=== PATIENT | female | born 1950 | race African-American/Black ===

== ENCOUNTER 2018-08-28 19:07 | Emergency (ER) | payer OTHER | END 2018-08-28 22:15 | disposition home or self-care (01) | LOC: JER 19:07 ==

== ENCOUNTER 2021-02-16 09:00 | Emergency (ER) | payer OTHER ==
[2021-02-16 09:05] VITALS: BMI 19.0
[2021-02-16 11:11] LABS: BASO % 0.7 % (0-2.0); EOS % 0.6 % (0-4.5); HEMATOCRIT 35.2 % (32.4-45.2); HEMOGLOBIN 12.1 GM/dL (10.7-15.3); LYMPH % 35.5 % (8-40); MCH 28.6 pg (25.7-33.7); MCHC 34.2 g/dl (32.0-36.0); MEAN CELL VOLUME 83.5 fl (80-96); MEAN PLT VOLUME 9.6 fl (7.5-11.1); MONO % 6.6 % (3.8-10.2); NEUT % 56.6 % (42.8-82.8); PLATELET COUNT 197 10^3/uL (134-434); RBC 4.22 M/mm3 (3.60-5.2); RDW 13.8 % (11.6-15.6); WHITE BLOOD COUNT 3.4 K/mm3 (4.0-10.0)
[2021-02-16 11:28] LABS: CHLORIDE 111 mmol/L (98-107); SODIUM 143 mmol/L (136-145)
[2021-02-16 11:31] LABS: ALBUMIN 3.6 g/dl (3.4-5.0); ANION GAP 4 MMOL/L (8-16); BLOOD UREA NITROGEN 14.6 mg/dL (7-18); CO2 28 mmol/L (21-32); GLUCOSE,RANDOM 86 mg/dL (74-106); MAGNESIUM 2.3 mg/dL (1.8-2.4)
[2021-02-16 11:34] LABS: CREATININE 1.1 mg/dL (0.55-1.3); PHOSPHOROUS 2.4 mg/dL (2.5-4.9); SGOT/AST 20 U/L (15-37); SGPT/ALT 19 U/L (13-61)
[2021-02-16 11:35] LABS: BILIRUBIN,TOTAL 0.4 mg/dL (0.2-1); TOT PROT 7.7 g/dl (6.4-8.2)
[2021-02-16 11:37] LABS: ALK PHOS 115 U/L (45-117)
[2021-02-16] MEDS ORDERED: METOCLOPRAMIDE HCL INJECTION 10 MG/2 ML VIAL IVPUSH ONE (13:06)
[2021-02-16] MEDS ORDERED: DEXAMETHASONE SOD PHOSPHATE 10 MG/1 ML VIAL IVPUSH ONE (13:07)
[2021-02-16] MEDS ORDERED: SODIUM CHLORIDE 0.9% 500 ML INFUS.BAG IV ONE (13:07)
[2021-02-16] MEDS ORDERED: KETOROLAC TROMETHAMINE 15 MG/ML VIAL IVPUSH ONE (13:07)
[2021-02-16] MEDS ORDERED: METOCLOPRAMIDE HCL INJECTION 10 MG/2 ML VIAL ONE (13:09)
[2021-02-16] MEDS ORDERED: KETOROLAC TROMETHAMINE 15 MG/ML VIAL ONE (13:10)
[2021-02-16] MEDS ORDERED: DEXAMETHASONE SOD PHOSPHATE 10 MG/1 ML VIAL ONE (13:34)
[2021-02-16 14:52] VITALS: TEMP 98.1
[2021-02-16 15:34] VITALS: BP 128/70; PULSE 68
== END 2021-02-16 15:34 | disposition home or self-care (01) ==
LOC: JER 09:00
PROC: 3E033GC Introduction of Other Therapeutic Substance into Peripheral Vein, Percutaneous Approach (ICD-10-PCS; principal; 2021-02-16)
DX: R53.1 Weakness (principal)
CPT/HCPCS: 36415; 70450-TC; 71045-TC-FY; 80053; 82550; 82553; 83735; 84100; 84484; 85025; 93005; 93010; 96374; 96375; 99285-25; C9803; J1100; U0003; U0005

== ENCOUNTER 2022-05-10 08:50 | Emergency (ER) | payer OTHER ==
[2022-05-10 08:54] VITALS: BP 124/73; PULSE 85; RESP 18; TEMP 99; BMI 19.0
[2022-05-10 10:01] LABS: BASO % 0.7 % (0-2.0); HEMATOCRIT 35.4 % (32.4-45.2); HEMOGLOBIN 11.9 GM/dL (10.7-15.3); LYMPH % 28.5 % (8-40); MCH 27.9 pg (25.7-33.7); MCHC 33.8 g/dl (32.0-36.0); MEAN CELL VOLUME 82.7 fl (80-96); MEAN PLT VOLUME 9.4 fl (7.5-11.1); MONO % 7.3 % (3.8-10.2); NEUT % 62.5 % (42.8-82.8); PLATELET COUNT 224 10^3/uL (134-434); RBC 4.28 M/mm3 (3.60-5.2); RDW 14.3 % (11.6-15.6); WHITE BLOOD COUNT 3.7 K/mm3 (4.0-10.0)
[2022-05-10 10:43] LABS: INR 0.99 (0.83-1.09); PROTHROMBIN TIME (PATIENT) 11.5 SEC (9.7-13.0)
[2022-05-10 10:45] LABS: ACTIVATED PTT 30.3 SECONDS (25.2-36.5)
[2022-05-10 10:56] LABS: ALBUMIN 3.9 g/dl (3.4-5.0); CALCIUM 8.9 mg/dL (8.5-10.1)
[2022-05-10 10:57] LABS: BLOOD UREA NITROGEN 14.6 mg/dL (7-18)
[2022-05-10 11:00] LABS: CREATININE 1.1 mg/dL (0.55-1.3)
[2022-05-10 11:01] LABS: BILIRUBIN,TOTAL 0.4 mg/dL (0.2-1); TOT PROT 7.7 g/dl (6.4-8.2)
== END 2022-05-10 12:10 | disposition home or self-care (01) ==
LOC: JER 08:50
DX: K92.1 Melena (principal); R10.31 Right lower quadrant pain
CPT/HCPCS: 36415; 80053; 82272; 83690; 85025; 85610; 85730; 86850; 86900; 86901; 93005; 93010; 99284-25

== ENCOUNTER 2022-12-17 04:34 | Day surgery (SDC) | payer OTHER ==
[2022-12-15 11:31] VITALS: BMI 18.6
[2022-12-17 08:35] VITALS: TEMP 97.8
[2022-12-17 08:58] VITALS: RESP 16
[2022-12-17 09:02] VITALS: BP 124/74; PULSE 56
== END 2022-12-17 09:20 | disposition home or self-care (01) ==
LOC: JASU-ENDO 04:34
PROVIDERS: ATTEND Internal Medicine Gastroenterology
PROC: 0DB68ZX Excision of Stomach, Via Natural or Artificial Opening Endoscopic, Diagnostic (ICD-10-PCS; principal; 2022-12-17 08:45)
DX: K29.50 Unspecified chronic gastritis without bleeding (principal); K31.7 Polyp of stomach and duodenum
CPT/HCPCS: 88305-TC; 88342-TC

== ENCOUNTER 2023-05-12 09:44 | Inpatient (IN) | payer OTHER ==
[2023-05-12 10:20] VITALS: BMI 18.8
[2023-05-12] MEDS ORDERED: ACETAMINOPHEN 325 MG TABLET (FP) ONE (10:24)
[2023-05-12] MEDS: ACETAMINOPHEN 325 MG TABLET (FP) PO ONE (10:28)
[2023-05-12 14:17] LABS: BASO % 0.2 % (0-2.0); EOS % 0.4 % (0-4.5); HEMOGLOBIN 11.9 GM/dL (10.7-15.3); LYMPH % 15.8 % (8-40); MCH 29.1 pg (25.7-33.7); MCHC 35.2 g/dl (32.0-36.0); MEAN CELL VOLUME 82.9 fl (80-96); MEAN PLT VOLUME 9.6 fl (7.5-11.1); MONO % 4.6 % (3.8-10.2); PLATELET COUNT 192 10^3/uL (134-434); WHITE BLOOD COUNT 7.7 K/mm3 (4.0-10.0)
[2023-05-12 14:22] LABS: INR 1.03 (0.83-1.09)
[2023-05-12 14:39] LABS: POTASSIUM 4.2 mmol/L (3.5-5.1)
[2023-05-12 14:43] LABS: CALCIUM 9.9 mg/dL (8.5-10.1)
[2023-05-12 14:44] LABS: ALBUMIN 3.5 g/dl (3.4-5.0); BLOOD UREA NITROGEN 13.9 mg/dL (7-18)
[2023-05-12 14:46] LABS: CREATININE 1.1 mg/dL (0.55-1.3)
[2023-05-12 14:48] LABS: BILIRUBIN,TOTAL 0.4 mg/dL (0.2-1); TOT PROT 7.4 g/dl (6.4-8.2)
[2023-05-12] MEDS: DEXTROSE 5%-0.45% SALINE 1,000 ML IV SCH (23:44)
[2023-05-12] MEDS: HEPARIN NA (PORCINE) 5,000 UNITS/ML 1ML VIAL SQ SCH (23:44)
[2023-05-12] MEDS ORDERED: HEPARIN NA (PORCINE) 5,000 UNITS/ML 1ML VIAL ONE (23:49)
[2023-05-13 10:14] LABS: BASO % 0.6 % (0-2.0); EOS % 1.5 % (0-4.5); HEMATOCRIT 33.4 % (32.4-45.2); HEMOGLOBIN 11.6 GM/dL (10.7-15.3); LYMPH % 24.9 % (8-40); MCH 28.9 pg (25.7-33.7); MCHC 34.6 g/dl (32.0-36.0); MEAN CELL VOLUME 83.3 fl (80-96); MEAN PLT VOLUME 9.8 fl (7.5-11.1); MONO % 6.5 % (3.8-10.2); NEUT % 66.5 % (42.8-82.8); PLATELET COUNT 183 10^3/uL (134-434); RBC 4.01 M/mm3 (3.60-5.2); RDW 13.9 % (11.6-15.6); WHITE BLOOD COUNT 4.7 K/mm3 (4.0-10.0)
[2023-05-13 10:40] LABS: POTASSIUM 4.1 mmol/L (3.5-5.1)
[2023-05-13 10:44] LABS: CALCIUM 9.1 mg/dL (8.5-10.1)
[2023-05-13 10:45] LABS: ALBUMIN 3.3 g/dl (3.4-5.0); BLOOD UREA NITROGEN 12.2 mg/dL (7-18)
[2023-05-13 10:49] LABS: BILIRUBIN,TOTAL 0.9 mg/dL (0.2-1)
[2023-05-13 10:50] LABS: TOT PROT 7.2 g/dl (6.4-8.2)
[2023-05-13 14:29] LABS: EPI CELLS 12 /uL (0-25.1); HYALINE CASTS 0 /uL (0-3.1); URINE APPEARANCE CLEAR; URINE BACTERIA 5 /uL (0-1359); URINE BILIRUBIN NEGATIVE (NEGATIVE); URINE COLOR YELLOW; URINE GLUCOSE (UA) NEGATIVE (NEGATIVE); URINE KETONE NEGATIVE (NEGATIVE); URINE LEUK ESTERASE TRACE (NEGATIVE); URINE NITRITE NEGATIVE (NEGATIVE); URINE PROTEIN NEGATIVE (NEGATIVE); URINE RBC 13 /uL (0-23.9); URINE UROBILINOGEN 0.2 mg/dL (0.2-1.0); URINE WBC 4 /uL (0-25.8)
[2023-05-13] MEDS: ACETAMINOPHEN 1000 MG/100 ML BAG IVPB PRN (14:59)
[2023-05-14 19:31] VITALS: RESP 18
[2023-05-14] MEDS ORDERED: CIPROFLOXACIN 500 MG TABLET (RESTRICTED TO ID) PO SCH (22:00)
[2023-05-15 14:22] VITALS: BP 104/65; PULSE 78; TEMP 98.2
== END 2023-05-15 16:35 | disposition home or self-care (01) | DRG 536 ==
LOC: JER 09:44 → JERBED 14:49 → J6S 05-13 00:40
PROVIDERS: ADMIT Internal Medicine; ATTEND Internal Medicine
DX: S32.491A Other specified fracture of right acetabulum, initial encounter for closed fracture (principal); E78.00 Pure hypercholesterolemia, unspecified; N18.9 Chronic kidney disease, unspecified; M85.861 Other specified disorders of bone density and structure, right lower leg; W18.39XA Other fall on same level, initial encounter; Y92.89 Other specified places as the place of occurrence of the external cause; Y99.8 Other external cause status
CPT/HCPCS: 36415; 71045-TC-FY; 72170-TC-FY; 72192-TC; 72195-TC; 73552-TC-RT-FY; 80053; 81003; 85025; 85610; 85730; 86850; 86900; 86901; 87086; 93005; 93010; 97116-GP; 97162-GP; 99285-25; J0131; J1644

== ENCOUNTER 2024-01-06 04:25 | Day surgery (SDC) | payer OTHER ==
[2023-12-28 14:24] VITALS: BMI 18.7
[2024-01-06 08:49] VITALS: TEMP 98.5
[2024-01-06 09:19] VITALS: RESP 16
[2024-01-06 09:23] VITALS: BP 108/71; PULSE 62
== END 2024-01-06 09:35 | disposition home or self-care (01) ==
LOC: JASU-ENDO 04:25
PROVIDERS: ATTEND Internal Medicine Gastroenterology
PROC: 0DJD8ZZ Inspection of Lower Intestinal Tract, Via Natural or Artificial Opening Endoscopic (ICD-10-PCS; principal; 2024-01-06 08:45)
DX: Z12.11 Encounter for screening for malignant neoplasm of colon (principal); K64.8 Other hemorrhoids; K57.30 Diverticulosis of large intestine without perforation or abscess without bleeding